=== PATIENT | male | born 1985 ===

== ENCOUNTER 2025-03-09 21:53 | Emergency (ER) | payer SELFPAY ==
[2025-03-09 21:55] VITALS: BP 157/80; PULSE 125; RESP 17; TEMP 36.8; O2SAT 100
[2025-03-09 21:57] VITALS: BMI 25.8
--- NOTE | 2025-03-09 22:16 | PD.EDMEDCL ---
ED Medical Clearance RME/HPI General Chief complaint: Medical Clearance Stated complaint: MEDICAL CLEARANCE Arrival date/time: 03/09/25 21:53 RME / HPI RME / HPI Narrative: CC: medical clearance Patient is a 40 year old male who denied a past medical history who presented to the emergency room via law enforcement with chief complain of fast heart rate. Patient denied chest pain or shortness of breath. Denied history of of cardiac history. Denied trauma to chest or rashes. Patient denied any other symptoms. Denied illicit drug use or alcohol use. Related Information Allergies Allergy/AdvReac Type Severity Reaction Status Date / Time No Known Drug Allergies Allergy Verified 03/09/25 22:06 Review of Systems Review of Systems Narrative Review of Systems: General appearance: NO weight change, NO fatigue, NO weakness, NO fever, NO chills, NO night sweats, No cough Skin: NO rash, NO itching, NO sores, NO moles HEENT: NO Trauma, NO nausea, NO vomiting, NO visual changes, NO blurry vision, NO double vision, NO tinnitus, NO vertigo, NO ear discharge, NO rhinorrhea, NO stuffiness, NO sneezing, NO allergy, NO epistaxis. NO Hoarseness, NO sore throat, NO swollen neck. Cardiac: NO Palpitations, NO dyspnea on exertion, NO orthopnea, NO paroxysmal nocturnal dyspnea, NO edema Respiratory: NO Shortness of Breath, NO Wheezing, NO Cough, NO Sputum, NO hemoptysis GI:NO appetite, NO nausea, NO vomiting, NO dysphagia, NO changes in bowel frequency, NO stool color, NO diarrhea, NO constipation, NO hemetemesis, NO hemorrhoids, NO melena, NO hematechezia, NO abdominal pain, NO jaundice Renal: NO frequency, NO hesitancy, NO urgency, NO hematuria, NO nocturia, NO incontinence MSK: NO muscle weakness, NO gout, NO arthritis, NO muscle stiffness Neuro: NO headaches, NO tremors, NO weakness, NO paralysis, NO seizures, NO loss of consciousness, NO numbness. Hem: NO anemia, NO easy bruising/bleeding, NO petechiae, NO purpura Endo: NO heat/cold intolerance, NO excessive sweating, NO polyuria, NO polydipsia, NO polyphagia, NO thyroid problems, NO diabetes Pysch: NO mood, NO anxiety, NO depression ED Exam Narrative Physical exam: General Appearance: Alert & Oriented X3, well-nourished Male who is lying in bed in no acute distress HEENT: Skull symmetrical and atraumatic. Conjunctivae pink and moist. Pupils equal, round, reactive to light and accommodation (PERRL). External ear without lesion or discharge. Straight, nares patient, mucosa pink, no discharge. Cardio: tachy Rate and Rhythm with S1 and S2 heart sounds. No murmurs or extra heart sounds auscultated. No bruits on carotid auscultation. No peripheral edema or cyanosis. Lungs: Symmetric with good expansion. Chest and back non-tender. Breath sounds vesicular without crackles, wheezing or rhonchi Abdomen: Non-tender, Non-distended, Normal Reactive Bowel Sounds Neuro: Alert, cooperative, oriented to person, place, and time. Speech clear. CN grossly intact. Upper motor strength 5/5 and Lower motor strength 5/5. Sensation intact. Course Course Course Narrative: physical exam Quality Measures none Vital Signs Vital signs: Vital Signs Temperature 98.3 F 03/09/25 21:55 Pulse Rate 125 H 03/09/25 21:55 Respiratory Rate 17 03/09/25 21:55 Blood Pressure 157/80 H 03/09/25 21:55 Pulse Oximetry (%) 100 03/09/25 21:55 Oxygen Delivery Method Aerosol Mask 03/09/25 21:55 Medical Clearance Patient data External records reviewed:: [facility] previous records Clinical information provided by:: patient Social determinants that could affect healthcare access:: none Patient has the following chronic illnesses:: None How is presenting disease/condition affected by chronic disease/condition?: no chronic disease Evaluation data The following diagnostics were reviewed and interpreted by me:: other (specify) (physical exam ) Lab and/or radiology exams considered but not ordered:: none Interpretation Summary: Patient arrived to [facility] via law enforcement for medical clearance with no complains. HR rate 125. Physical exam unremarkable, head atraumatic. No open cuts or lesions noted. Rate tachy but normal rhythm. Vesicular breath sounds bilaterally. Patient was medically cleared. - The patient's plan was discussed with attending Dr. Dusty Multani MD PGY2 Internal Medicine Medications / Prescriptions Medications or Prescriptions considered but not ordered:: None Medication administrations:: None Consultations Consultation(s) initiated? (list below): No Diagnosis Medical Clearance Differential Diagnosis: other (sinus tachy vs acs vs trauma to chest ) Most likely diagnosis given after review of the tests above:: Patient arrived to [facility] via law enforcement for medical clearance with no complains. HR rate 125. Physical exam unremarkable, head atraumatic. No open cuts or lesions noted. Rate tachy but normal rhythm. Vesicular breath sounds bilaterally. #Patient was medically cleared. #Sinus Tachy - The patient's plan was discussed with attending Dr. Dusty Multani MD PGY2 Internal Medicine Admission Indicated Admission indicated?: not indicated Admission Request Was there a request for admission?: No Disposition Plan Disposition Plan: other (specify) (discharge to group home ) Discharge Plan Plan Patient Disposition: Long-Term/Court/Law Patient condition on transfer: Stable Problem List Clinical Impression: Medical clearance for incarceration Patient/Caregiver Discharge Instructions Discharge Activity: activity as tolerated Print Language: Sen[place]ales[place]
== END 2025-03-09 22:21 ==
LOC: SERX 22:30
PROVIDERS: Emergency Provider Emergency Medicine
DX: Z02.89 Encounter for other administrative examinations (principal); R00.0 Tachycardia, unspecified
CPT/HCPCS: 99281